=== PATIENT | male | born 1990 | race Caucasian/White ===

== ENCOUNTER 2020-11-05 14:56 | Outpatient (RCR) | payer OTHER, SELFPAY ==
--- NOTE | 2020-11-05 16:12 | PTOPEVAL ---
Thank you for referring Ryland Merchant to [facility].? The patient is scheduled to be seen for therapy? 1x/week for 4 weeks. Please review, sign, date and return this plan of care DHARA. I agree with and certify that the following plan of care is medically necessary. Referring Physician Date Attending Provider: Reyes Bragg, Referring Provider: Reeys Bragg, Physical Therapy Evaluation Diagnosis hip pain Onset 08/2019 Additional Evaluation Detail He he was lifting too much weight (375#) during a lift movement when he moved to quickly with poor form. He heard a pop and dropped the weight. He reports improved pain, but never went away. Subjective Information He received extensive Query Text:As Reported By Patient/ chiropractor services in 2020 Family and 11/02 to address his back pain. He was provided exercise he perform nightly. He works in [employer] with lifting task. He will report increased pain with repeated lifting and carrying task. If he rest he will report improved pain. Denies pain waking him at night recently. Denies numbness/tingling into legs/ buttock region. He just purchased resistance band for home. He does have access to weight for resistance training. Diagnostic Tests X-Rays For This Problem Yes Previous Treatments Previous Treatments For This Problem Chiropractor: 06/01-10/02, 11/02 Pain Assessment Pain Scale Used Numeric (1 - 10) Self Report Pain Assessment Right Posterior Pelvis Reported Pain Level 3 Pain Description Aching Pain Frequency Chronic,Intermittent Lowest Pain Intensity 0 Greatest Pain Intensity 5 Pain Aggravating Factors Bending,Lifting Cervical and Lumbar ROM Lumbar Flexion Active Floor Query Text:Hands to: Lumbar ROM WNL Lumbar Comments painful with left side bending 100% of all trunk motion Lower Extremity Range of Motion General Lower Extremity Range of Motion Reason Not Measured WNL/Left,WNL/Right Cervical and Lumbar Muscle Testing Lumbar Strength Upper Abdominal Strength 4 Good Lower Abdominal Strength
--- NOTE | 2020-11-11 17:42 | PCPTNOTE ---
Patient did not show up for scheduled appointment this date; called and left voicemail from reminder on next appointment.
--- NOTE | 2020-11-21 14:25 | PCPTNOTE ---
Patient did not show up for scheduled appointment this date. Pt states he forgot about his appt. Reminded him of his next appt. Reminded pt of cancelation/no show policy. If he does not attend his next visit will plan to remove his remaining visits and D/C.
--- NOTE | 2020-11-26 07:14 | PCPTNOTE ---
Patient did not show up for scheduled appointment this date; called and reported to patient per policy discharging at this time. If he feels he needs to return a new order from MD will need to made. Notified discharging PT.
--- NOTE | 2020-11-26 09:17 | PCPTNOTE ---
Admitting Provider: Attending Provider: Reyes BraggMD Patient:Ryland Merchant Date of :1990 Discharge Note Patient has not returned for any further treatments since initial evaluation on 11/05/2020, therefore he will be discharged at this time. He was seen for only his initial evaluation. He had been called multiple times regarding his therapy appointments. No goals have been met due to he did not return for follow-up therapy visits. Thank you for referring this patient to [facility]. Please review, sign, date and return this discharge summary DHARA. I have been updated about the patient's current status and I agree with discharge from the above service at this time. Referring Physician Date
== END 2020-11-26 13:17 | disposition home or self-care (01) ==
LOC: ANHPT 14:56
PROVIDERS: PCP Internal Medicine; Referring Provider Internal Medicine; Visit Provider Internal Medicine
DX: M25.551 Pain in right hip (principal)
CPT/HCPCS: 97110; 97140; 97161

== ENCOUNTER 2023-05-01 15:21 | Emergency (ER) | payer OTHER, SELFPAY ==
[2023-05-01 15:24] VITALS: BP 105/55; PULSE 80; RESP 18; TEMP 36.9; O2SAT 100
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
[2023-05-01] MEDS: ACETAMINOPHEN 325 MG TABLET 650 MG PO (16:35)
[2023-05-01] MEDS: diazePAM (*CRX) 5 MG TABLET PO (16:36)
[2023-05-01] MEDS: KETOROLAC 30 MG/ML VIAL (*BKC) IM (16:36)
== END 2023-05-01 17:56 | disposition home or self-care (01) ==
PROVIDERS: Emergency Provider Student in an Organized Health Care Education/Training Program; PCP Internal Medicine
DX: M54.16 Radiculopathy, lumbar region (principal); S39.012A Strain of muscle, fascia and tendon of lower back, initial encounter; X58.XXXA Exposure to other specified factors, initial encounter
CPT/HCPCS: 96372; 99283; A9270; J1885